=== PATIENT | female | born 1980 | race Caucasian/White ===

== ENCOUNTER 2019-03-18 08:21 | Emergency (ER) | payer OTHER ==
--- NOTE | 2019-03-18 09:07 | ED Physician Documentation ---
PD HPI CHEST PAIN - Stated complaint Stated Complaint: CP - Chief complaint Chief Complaint: Cardiac - History obtained from History obtained from: Patient - History of Present Illness Timing - onset: How many weeks ago (2) Timing - onset during: Rest Timing - duration: Weeks (2) Timing - details: Gradual onset, Still present, Waxing and waning Quality: Pressure, Tightness, Sharp Location: Left chest Radiation: Left upper extremity Worsened by: Other (nothing) Similar symptoms before: Has not had sx before Recently seen: Not recently seen - Additional information Additional information: Previously well 39-year-old female is developed some pain in her left chest at the junction to the sternum and she is found that she periodically will have some numbness in her left arm as well. She feels she might have been having some trouble getting a full deep breath periodically. She states the pain is coming and going and lasting a minute every few minutes. She has not had this previously. She does acknowledge significant stress with the recent of someone close to her. She has had some sobbing at night. Review of Systems Constitutional: denies: Fever Eyes: denies: Decreased vision Ears: denies: Ear pain Nose: denies: Rhinorrhea / runny nose, Congestion Throat: denies: Sore throat Cardiac: reports: Chest pain / pressure. denies: Palpitations, Pedal edema, Calf pain Respiratory: denies: Dyspnea, Cough, Wheezing GI: denies: Abdominal Pain, Nausea, Vomiting : denies: Dysuria, Frequency Skin: denies: Rash Musculoskeletal: denies: Neck pain, Back pain, Extremity pain Neurologic: denies: Generalized weakness, Focal weakness, Numbness, Confused, Altered mental status, Headache, Head injury, LOC PD PAST MEDICAL HISTORY - Allergies Allergies/Adverse Reactions: Allergies Allergy/AdvReac Type Severity Reaction Status Date / Time amoxicillin Allergy Rash Verified 03/18/19 08:33 PD ED PE NORMAL - Vitals Vital signs reviewed: Yes (hypertensive ) - General General: Alert and oriented X 3, No acute distress, Well developed/nourished - HEENT HEENT: Atraumatic, PERRL, EOMI - Neck Neck: Supple, no meningeal sign, No bony TTP - Cardiac Cardiac: RRR, No murmur - Respiratory Respiratory: No respiratory distress, Clear bilaterally, Other (There is tenderness to the chest wall on the left side at the costo-sternal junction reproducing the pain the patient is experiencing. ) - Abdomen Abdomen: Normal bowel sounds, Soft, Non tender, Non distended, No organomegaly - Back Back: No CVA TTP, No spinal TTP - Derm Derm: Normal color, Warm and dry, No rash - Extremities Extremities: No deformity, No edema - Neuro Neuro: Alert and oriented X 3, desulfurizer hand 2-12 intact, No motor deficit, No sensory deficit, Normal speech Eye Opening: Spontaneous Motor: Obeys Commands Verbal: Oriented GCS Score: 15 - Psych Psych: Normal mood, Normal affect Results - Vitals Vitals: Vital Signs - 24 hr 03/18/19 08:28 Temperature 37.1 C Heart Rate 72 Respiratory 20 Rate Blood Pressure 138/93 H O2 Saturation 97 Oxygen O2 Source Room air - EKG (time done) 0828 Rate: Rate (enter#) (63) Rhythm: NSR Ischemia: Normal ST segments Compare to prior EKG: Old EKG unavailable Computer interpretation: Agree with computer - Labs Labs: Laboratory Tests 03/18/19 03/18/19 03/18/19 09:20 09:20 09:20 WBC 5.6 RBC 4.35 Hgb 13.2 Hct 41.6 MCV 95.6 MCH 30.3 MCHC 31.7 L RDW 12.2 Plt Count 179 MPV 10.4 Neut # (Auto) 3.0 Lymph # (Auto) 2.0 Benson # (Auto) 0.4 Eos # (Auto) 0.1 Baso # (Auto) 0.0 Absolute Nucleated RBC 0.00 Nucleated RBC % 0.0 D-Dimer Sodium 139 Potassium 4.1 Chloride 105 Carbon Dioxide 28 Anion Gap 6.0 BUN 11 Creatinine 0.8 Estimated GFR (MDRD) 79 L Glucose 103 H Calcium 9.1 Total Bilirubin 0.6 AST 19 ALT 15 Alkaline Phosphatase 56 Troponin I High Sens < 2.3 L Total Protein 7.6 Albumin 4.1 Globulin 3.5 Albumin/Globulin Ratio 1.2 Lipase 33 03/18/19 09:20 WBC RBC Hgb Hct MCV MCH MCHC RDW Plt Count MPV Neut # (Auto) Lymph # (Auto) Benson # (Auto) Eos # (Auto) Baso # (Auto) Absolute Nucleated RBC Nucleated RBC % D-Dimer < 200.0 L Sodium Potassium Chloride Carbon Dioxide Anion Gap BUN Creatinine Estimated GFR (MDRD) Glucose Calcium Total Bilirubin AST ALT Alkaline Phosphatase Troponin I High Sens Total Protein Albumin Globulin Albumin/Globulin Ratio Lipase - Rads (name of study) chest 2 view Radiology: Prelim report reviewed (Impression: Normal 2 view chest radiography.), EMP read indepedently, See rad report PD MEDICAL DECISION MAKING - ED course Complexity details: reviewed results, re-evaluated patient, considered differential, d/w patient ED course: Previously well 39-year-old female has developed some pain in the left chest wall that is reproducible with palpation and she acknowledges some significant stress with a of a close friend. She is administered PO decadron and her diagnostics are otherwise unremarkable. Departure - Departure Disposition: 01 Home, Self Care Clinical Impression: Chest wall pain, Stress and adjustment reaction Condition: Stable Instructions: ED Stress React, ED Chest Pain Costochondritis Follow-Up: Herrera Vasquez MD [Primary Care Provider] -
[2019-03-18] MEDS ORDERED: DEXAMETHASONE 10 MG/ML VIAL PO STA (09:17)
[2019-03-18] MEDS ORDERED: CHERRY SYRUP 10 ML UDC PO ONE (09:17)
[2019-03-18 09:28] LABS: BASOPHILS % (AUTO) 0.5 %; EOSINOPHILS # (AUTO) 0.1 10^3/uL (0.0-0.7); EOSINOPHILS % (AUTO) 2.5 %; HGB - HEMOGLOBIN 13.2 g/dL (12.0-16.0); MEAN CORPUSCULAR HEMOGLOBIN 30.3 pg (27.0-31.0); MEAN CORPUSCULAR HGB CONC 31.7 g/dL (32.0-36.0); MEAN CORPUSCULAR VOLUME 95.6 fL (81.0-99.0); MEAN PLATELET VOLUME 10.4 fL (7.9-10.8); MONOCYTES # (AUTO) 0.4 10^3/uL (0.0-1.0); MONOCYTES % (AUTO) 7.3 %; NEUTROPHILS % (AUTO) 53.3 %; PLT - PLATELET COUNT 179 10^3/uL (130-450); RED BLOOD COUNT 4.35 10^6/uL (4.20-5.40); RED CELL DISTRIBUTION WIDTH 12.2 % (12.0-15.0); WHITE BLOOD COUNT 5.6 x10^3/uL (4.8-10.8)
[2019-03-18 09:47] LABS: ALBUMIN 4.1 g/dL (3.2-5.5); ALBUMIN/GLOBULIN RATIO 1.2 (1.0-2.2); BILIRUBIN,TOTAL 0.6 mg/dL (0.2-1.0); CALCIUM 9.1 mg/dL (8.5-10.3); CREATININE 0.8 mg/dL (0.4-1.0); TOTAL PROTEIN 7.6 g/dL (6.7-8.2)
--- NOTE | 2019-03-18 10:12 | XRAY Report ---
Reason: chest pain Procedure Date: 03/18/2019 Accession Number: [id number] / [id number] Procedure: XR - Chest 2 View X-Ray CPT Code: 65086 FULL RESULT: EXAM: CHEST RADIOGRAPHY EXAM DATE: 03/18/2019 09:23 AM. CLINICAL HISTORY: Chest pain for 2 weeks. More on left side towards apices. COMPARISON: None. TECHNIQUE: 2 views. FINDINGS: Lungs/Pleura: No focal opacities evident. No pleural effusion. No pneumothorax. Normal volumes. Mediastinum: Heart and mediastinal contours are unremarkable. Other: None. IMPRESSION: Normal 2-view chest radiography. RADIA
[2019-03-18 10:29] VITALS: BP 131/86
== END 2019-03-18 10:41 | disposition home or self-care (01) ==
LOC: ED 08:21
DX: R07.89 Other chest pain (principal); F43.20 Adjustment disorder, unspecified
CPT/HCPCS: 36415; 71046; 80053; 83690; 84484; 85025; 85379; 93005; 99284; A9270

== ENCOUNTER 2019-06-22 08:00 | Outpatient (CLI) | payer OTHER | END 2019-06-22 23:59 | disposition home or self-care (01) | LOC: LAB.R 08:00 | PROVIDERS: ATTEND Registered Nurse | DX: J34.89 Other specified disorders of nose and nasal sinuses (principal) | CPT/HCPCS: 87070; 87081; 87205 ==

== ENCOUNTER 2020-03-11 13:44 | Emergency (ER) | payer OTHER ==
[2020-03-11 14:13] LABS: BASOPHILS % (AUTO) 0.6 %; EOSINOPHILS # (AUTO) 0.1 10^3/uL (0.0-0.7); EOSINOPHILS % (AUTO) 1.9 %; HGB - HEMOGLOBIN 13.7 g/dL (12.0-16.0); LYMPHOCYTES # (AUTO) 1.9 10^3/uL (1.5-3.5); LYMPHOCYTES % (AUTO) 27.4 %; MEAN CORPUSCULAR HEMOGLOBIN 31.5 pg (27.0-31.0); MEAN CORPUSCULAR HGB CONC 32.8 g/dL (32.0-36.0); MEAN CORPUSCULAR VOLUME 96.1 fL (81.0-99.0); MEAN PLATELET VOLUME 10.6 fL (7.9-10.8); MONOCYTES # (AUTO) 0.5 10^3/uL (0.0-1.0); MONOCYTES % (AUTO) 6.5 %; NEUTROPHILS # (AUTO) 4.4 10^3/uL (1.5-6.6); NEUTROPHILS % (AUTO) 63.3 %; PLT - PLATELET COUNT 210 10^3/uL (130-450); RED BLOOD COUNT 4.35 10^6/uL (4.20-5.40)
--- NOTE | 2020-03-11 14:22 | ED Physician Documentation ---
History of Present Illness - Stated complaint Stated Complaint: HIGH BLOOD PRESSURE - Chief complaint Chief Complaint: Cardiac - History obtained from History obtained from: Patient - Additonal information Additional information: Previously healthy 40-year-old woman presents with multiple complaints that are very concerning to her. For the last month or so she has had a constant feeling of deadness of her left arm that is not painful. It is not weak. There is no associated chest pain or trouble breathing. Over the last couple of weeks she has had an intermittent "fluttering" usually in the left supraorbital area but sometimes on the right as well. Associated with mildly blurry vision. No headaches per se. All this together associated with sore breasts made her worried about heart conditions or about the aneurysm that took her sister prematurely in her brain and she checked her blood pressure twice and it was 150/80 and subsequently 180/100. Review of Systems Ten Systems: 10 systems reviewed and negative Constitutional: denies: Fever, Chills, Fatigue Nose: denies: Rhinorrhea / runny nose, Congestion Throat: denies: Sore throat Cardiac: denies: Chest pain / pressure, Palpitations, Pedal edema, Calf pain Respiratory: denies: Dyspnea, Cough PD PAST MEDICAL HISTORY - Present Medications Home Medications: Ambulatory Orders Medication Instructions Recorded Confirmed Propranolol [Inderal] 10 mg PO BID #120 tablet 03/11/20 - Allergies Allergies/Adverse Reactions: Allergies Allergy/AdvReac Type Severity Reaction Status Date / Time amoxicillin Allergy Rash Verified 03/18/19 08:33 PD ED PE NORMAL - Vitals Vital signs reviewed: Yes - General General: Alert and oriented X 3, No acute distress - HEENT HEENT: PERRL, EOMI, Pharynx benign - Neck Neck: Supple, no meningeal sign, No bony TTP - Cardiac Cardiac: RRR, No murmur - Respiratory Respiratory: No respiratory distress, Clear bilaterally - Abdomen Abdomen: Non tender - Back Back: No CVA TTP, No spinal TTP - Derm Derm: Normal color, Warm and dry - Extremities Extremities: No edema, No calf tenderness / cord - Neuro Neuro: Alert and oriented X 3, pipeline technician 2-12 intact, No motor deficit, No sensory deficit, Normal speech Eye Opening: Spontaneous Motor: Obeys Commands Verbal: Oriented GCS Score: 15 Results - Vitals Vitals: Vital Signs - 24 hr 03/11/20 03/11/2020 13:50 14:12 15:01 Temperature 36.9 C 37.2 C 36.4 C L Heart Rate 91 78 85 Respiratory 20 16 22 Rate Blood Pressure 144/107 H 151/84 H 137/92 H O2 Saturation 98 100 100 03/11/20 15:59 Temperature 37.1 C Heart Rate 67 Respiratory 18 Rate Blood Pressure 157/93 H O2 Saturation 99 Oxygen O2 Source Room air - EKG (time done) 1359 Rate: Rate (enter#) (72) Rhythm: NSR [place]: Normal Intervals: Normal IA QRS: Normal Ischemia: Normal ST segments Computer interpretation: Agree with computer - Labs Labs: Laboratory Tests 03/11/20 03/11/20 03/11/20 14:05 14:05 14:05 WBC 7.0 RBC 4.35 Hgb 13.7 Hct 41.8 MCV 96.1 MCH 31.5 H MCHC 32.8 RDW 12.0 Plt Count 210 MPV 10.6 Neut # (Auto) 4.4 Lymph # (Auto) 1.9 [place] # (Auto) 0.5 Eos # (Auto) 0.1 Baso # (Auto) 0.0 Absolute Nucleated RBC 0.00 Nucleated RBC % 0.0 Sodium 142 Potassium 3.6 Chloride 104 Carbon Dioxide 27 Anion Gap 11.0 BUN 14 Creatinine 0.8 Estimated GFR (MDRD) 79 L Glucose 98 Calcium 9.5 Total Bilirubin 0.6 AST 18 ALT 16 Alkaline Phosphatase 71 Troponin I High Sens < 2.3 L Total Protein 8.2 Albumin 4.4 Globulin 3.8 Albumin/Globulin Ratio 1.2 Lipase 30 - Rads (name of study) CTA Head Radiology: EMP read contemporaneously (normal) PD MEDICAL DECISION MAKING - ED course ED course: 40-year-old woman presents with left arm numbness, but no evidence of stroke and is longstanding, month. She also has some other atypical symptoms. Her work- up here was completely negative. In talking to her at length it became clear that anxiety is a considerable portion of her symptoms and she admits as such. We talked about potential treatments for this and she is given a prescription fo r propranolol which she may try. Departure - Departure Disposition: 01 Home, Self Care Clinical Impression: Anxiety, Headache above the eye region, Arm numbness left, Elevated blood pressure reading without diagnosis of hypertension Condition: Good Record reviewed to determine appropriate education?: Yes Instructions: ED Stress React Prescriptions: Propranolol [Inderal] 10 mg PO BID #120 tablet Comments: CT angiography of your head was normal, this rules out aneurysm. Basic blood work and EKG were also normal. As discussed, I think anxiety is affecting you personally, the propranolol should help with that and may help with mildly elevated blood pressures as well. Return if you worsen. If you want to talk with your doctor about further treatment for anxiety, consider an antidepressant such as Lexapro. Also cardiac exercise is important. Discharge Date/Time: 03/11/20 16:00
[2020-03-11 14:29] LABS: ALBUMIN 4.4 g/dL (3.2-5.5); ALBUMIN/GLOBULIN RATIO 1.2 (1.0-2.2); BILIRUBIN,TOTAL 0.6 mg/dL (0.2-1.0); CALCIUM 9.5 mg/dL (8.5-10.3); CREATININE 0.8 mg/dL (0.4-1.0); TOTAL PROTEIN 8.2 g/dL (6.7-8.2)
[2020-03-11] MEDS ORDERED: IOVERSOL 320 100 ML VIAL IVP ONE ×2 (14:44→15:01)
--- NOTE | 2020-03-11 15:31 | CT Report ---
PROCEDURE: ANGIO HEAD W/WO INDICATIONS: headache, FHX aneurysm CONTRAST: IV CONTRAST: Optiray 320 ml: 80 PO CONTRAST: *NO PO CONTRAST TECHNIQUE: Precontrast 4.5 mm thick angled axial sections acquired from the foramen magnum to the vertex. Afte r the administration of intravenous contrast, 1 mm thick sections acquired through the [place] of [place] is. Postcontrast 4.5 mm thick sections then re-acquired from the foramen magnum to the vertex. 3-di mensional bnifpvb-pucdxjmle-mcluznmkua (MIP) and/or volume rendering reformats were acquired of the c entral intracranial vasculature. For radiation dose reduction, the following was used: automated ex posure control, adjustment of mA and/or kV according to patient size. COMPARISON: None. FINDINGS: Image quality: Excellent. Anterior circulation: Intracranial internal carotid arteries are normal in size and flow. The flow within the paired anterior cerebral arteries is normal and symmetric. The flow within the middle cer ebral arteries is normal and symmetric. The anterior communicating artery is seen. No aneurysms are seen. Posterior circulation: Visualized portions of the vertebral arteries demonstrate normal caliber, and join to form a normal appearing basilar artery. Flow within the posterior cerebral arteries is norm al and symmetric. No aneurysms are seen. CSF spaces: Ventricles are normal in size and shape. Basal cisterns are patent. No extra-axial flu id collections. Brain: No midline shift. No intracranial bleeds or masses. Garcia-white matter interface appears int act. Skull and face: Calvarium and facial bones appear intact, without suspicious lesions. Sinuses: Visualized sinuses and mastoids are clear. IMPRESSION: CT without acute intracranial abnormalities or acute intracranial hemorrhage. No mass or mass effect. Negative CT angiogram of the intracranial arterial vasculature. Reviewed by: Guy Jacob MD on 03/11/2020 3:30 PM PDT Approved by: Guy Jacob MD on 03/11/2020 3:30 PM PDT Station ID: [id number]
[2020-03-11 15:59] VITALS: BP 157/93
== END 2020-03-11 16:00 | disposition home or self-care (01) ==
LOC: ED 13:44
DX: F41.9 Anxiety disorder, unspecified (principal); R51.9 Headache, unspecified; R03.0 Elevated blood-pressure reading, without diagnosis of hypertension; R20.0 Anesthesia of skin
CPT/HCPCS: 36415; 70496; 80053; 83690; 84484; 85025; 93005; 99284; Q9967

== ENCOUNTER 2020-03-25 10:24 | Outpatient (CLI) | payer OTHER ==
[2020-03-25 14:32] LABS: HEMOGLOBIN A1c% 4.9 % (4.27-6.07)
== END 2020-03-25 10:25 | disposition home or self-care (01) ==
LOC: LAB.S 10:24
PROVIDERS: ATTEND Registered Nurse
DX: Z83.3 Family history of diabetes mellitus (principal); R63.5 Abnormal weight gain
CPT/HCPCS: 36415; 83036; 84443

== ENCOUNTER 2020-04-07 08:00 | Outpatient (CLI) | payer OTHER | END 2020-04-07 23:59 | disposition home or self-care (01) | LOC: LAB.R 08:00 | PROVIDERS: ATTEND Registered Nurse | DX: J34.89 Other specified disorders of nose and nasal sinuses (principal) | CPT/HCPCS: 87070; 87205 ==

== ENCOUNTER 2020-05-15 16:41 | Outpatient (CLI) | payer OTHER | END 2020-05-15 16:42 | disposition home or self-care (01) | LOC: COV 16:41 | PROVIDERS: ATTEND Family Medicine | DX: R09.81 Nasal congestion (principal); J34.89 Other specified disorders of nose and nasal sinuses; Z20.828 Contact with and (suspected) exposure to other viral communicable diseases ==

== ENCOUNTER 2020-12-12 19:32 | Outpatient (CLI) | payer OTHER | END 2020-12-12 19:33 | disposition home or self-care (01) | LOC: COV 19:32 | PROVIDERS: ATTEND Family Medicine | DX: R09.81 Nasal congestion (principal); J34.89 Other specified disorders of nose and nasal sinuses; Z20.822 Contact with and (suspected) exposure to COVID-19 ==

== ENCOUNTER 2022-04-12 08:00 | Outpatient (CLI) | payer OTHER ==
--- NOTE | 2022-04-12 15:59 | XRAY Report ---
PROCEDURE: Ankle 3 View RT INDICATIONS: RIGHT ANKLE PAIN TECHNIQUE: 3 views of the ankle were acquired. COMPARISON: None. FINDINGS: Bones: No fractures or dislocations. Ankle mortise is normally aligned. No suspicious bony lesions . Soft tissues: No tibiotalar joint effusion. Achilles tendon appears normal. There is soft tissue s welling asymmetrically prominent over the lateral malleolus. IMPRESSION: A fracture is not found in the ankle mortise joint is normally aligned but there is asym metric prominent soft tissue swelling over the lateral malleolus, which may indicate ligamentous inju ry in that area after trauma. Reviewed by: Mehul Pedro MD on 04/12/2022 3:57 PM PST Approved by: Mehul Pedro MD on 04/12/2022 3:57 PM PST Station ID: [id number]
== END 2022-04-12 23:59 | disposition home or self-care (01) ==
LOC: DI.S 08:00
PROVIDERS: ATTEND Physician Assistant
DX: M25.571 Pain in right ankle and joints of right foot (principal)

== ENCOUNTER 2022-11-11 07:39 | Outpatient (CLI) | payer OTHER ==
[2022-11-11 14:25] LABS: BASOPHILS % (AUTO) 0.6 %; EOSINOPHILS # (AUTO) 0.1 10^3/uL (0.0-0.7); EOSINOPHILS % (AUTO) 2.7 %; HCT - HEMATOCRIT 40.6 % (37.0-47.0); HGB - HEMOGLOBIN 12.9 g/dL (12.0-16.0); LYMPHOCYTES # (AUTO) 1.7 10^3/uL (1.5-3.5); LYMPHOCYTES % (AUTO) 32.6 %; MEAN CORPUSCULAR HEMOGLOBIN 30.5 pg (27.0-31.0); MEAN CORPUSCULAR HGB CONC 31.8 g/dL (32.0-36.0); MEAN PLATELET VOLUME 11.6 fL (7.9-10.8); MONOCYTES # (AUTO) 0.5 10^3/uL (0.0-1.0); MONOCYTES % (AUTO) 8.7 %; NEUTROPHILS # (AUTO) 2.9 10^3/uL (1.5-6.6); NEUTROPHILS % (AUTO) 55.2 %; PLT - PLATELET COUNT 184 10^3/uL (130-450); RED BLOOD COUNT 4.23 10^6/uL (4.20-5.40); RED CELL DISTRIBUTION WIDTH 12.7 % (12.0-15.0); WHITE BLOOD COUNT 5.3 x10^3/uL (4.8-10.8)
[2022-11-11 15:02] LABS: THYROID STIMULATING HORMONE 2.12 uIU/mL (0.34-5.60)
[2022-11-11 16:03] LABS: ALBUMIN 3.8 g/dL (3.2-5.5); ALBUMIN/GLOBULIN RATIO 1.1 (1.0-2.2); ALKALINE PHOSPHATASE 65 IU/L (42-121); ALT ALANINE AMINOTRANSFERASE 15 IU/L (10-60); AST ASPARTATE AMINOTRANSFERASE 16 IU/L (10-42); BILIRUBIN,TOTAL 0.6 mg/dL (0.2-1.0); BUN - BLOOD UREA NITROGEN 11 mg/dL (6-20); CALCIUM 8.7 mg/dL (8.5-10.3); CARBON DIOXIDE - CO2 25 mmol/L (21-32); CHLORIDE 110 mmol/L (101-111); CHOL/HDL RATIO 4.7 (<4.4); CHOLESTEROL 188 mg/dL; CREATININE 0.8 mg/dL (0.4-1.0); GFR - MDRD 78 (>89); GLUCOSE 104 mg/dL (70-100); HDL CHOLESTEROL 40 mg/dL; LDL CHOLESTEROL,CALCULATED 121 mg/dL; POTASSIUM 4.3 mmol/L (3.5-5.0); SODIUM 139 mmol/L (135-145); TOTAL PROTEIN 7.4 g/dL (6.7-8.2); TRIGLYCERIDES 134 mg/dL; VLDL CHOLESTEROL 27 mg/dL
== END 2022-11-11 07:40 | disposition home or self-care (01) ==
LOC: LAB.S 07:39
PROVIDERS: ATTEND Registered Nurse
DX: E78.5 Hyperlipidemia, unspecified (principal); Z79.899 Other long term (current) drug therapy
CPT/HCPCS: 36415; 80053; 80061; 83721; 84443; 85025